=== PATIENT | female | born 1990 | race Caucasian/White ===

== ENCOUNTER → 2016-09-20 | Day surgery (SDC) | payer OTHER ==
[~2016-09-20] VITALS: Ht 167.6 cm; Wt 83.0 kg
[~2016-09-20] MED LIST: ALEVE220 M1 PO; DESYREL100 MG PO; LEXAPRO10 MG PO; PRILOSEC20 MG PO; SPRINTEC 28 DA1 EACH PO; ZOFRAN4 MG PO
== END | disposition disaster alternative care site (69) ==
LOC: GPOC 09-19 17:00 → GEND 08:54 → GPOC 09:00
PROC: 0DB68ZX Excision of Stomach, Via Natural or Artificial Opening Endoscopic, Diagnostic (ICD-10-PCS; principal; 2016-09-20)
PROC: 0DB88ZX Excision of Small Intestine, Via Natural or Artificial Opening Endoscopic, Diagnostic (ICD-10-PCS; 2016-09-20)
DX: K29.50 Unspecified chronic gastritis without bleeding (principal); F41.9 Anxiety disorder, unspecified; F17.200 Nicotine dependence, unspecified, uncomplicated; Z90.49 Acquired absence of other specified parts of digestive tract; Z98.890 Other specified postprocedural states; Z79.899 Other long term (current) drug therapy
CPT/HCPCS: J7030